=== PATIENT | female | born 1995 | race Caucasian/White ===

== ENCOUNTER 2024-11-16 09:20 | Emergency (ER) | payer MEDICAID ==
[~2024-11-16] VITALS: Ht 170.2 cm; Wt 91.0 kg
[2024-11-16 09:24] VITALS: O2SAT 99
[2024-11-16 10:24] LABS: BASOPHILS % 0.7 % (0.0-2.0); EOSINOPHILS % 2.9 % (0.0-5.0); HEMATOCRIT. 29.9 % (36.0-48.0); HEMOGLOBIN. 10.0 g/dL (12.0-16.0); LYMPHOCYTES % 23.2 % (20.0-50.0); MEAN PLATELET VOLUME 9.9 fl (7.4-10.4); MONOCYTES % 7.9 % (2.0-8.0); NEUTROPHILS % 65.3 % (40.0-76.0); PLATELET 223 x1000/uL (130-400); RED BLOOD CELL COUNT 3.87 mill/uL (4.2-5.4); RED CELL DISTRIBUTION WIDTH 14.2 % (11.6-14.6)
[2024-11-16 10:43] LABS: CREATININE 0.4 mg/dL (0.6-1.0); UREA NITROGEN BLOOD 11 mg/dL (9-23)
[2024-11-16 10:45] LABS: ASPARTATE AMINOTRANSFERASE 12 IU/L (<34); BILIRUBIN TOTAL 0.3 mg/dL (0.1-1.0); PROTEIN TOTAL 6.3 g/dL (6.0-8.3)
[2024-11-16 10:48] VITALS: BP 126/88; PULSE 89; RESP 16; TEMP 36.7; O2SAT 99
[2024-11-16 11:56] LABS: B-HCG QUANTITATIVE 10901 mIU/mL (<6)
== END 2024-11-16 10:54 | disposition short-term general hospital (02) ==
LOC: ER 09:20
DX: O22.43 Hemorrhoids in pregnancy, third trimester (principal); R10.2 Pelvic and perineal pain; Z3A.38 38 weeks gestation of pregnancy
CPT/HCPCS: 36415; 76805; 80053; 84702; 85025; 86850; 86900; 99285